=== PATIENT | male | born 1975 | race African-American/Black ===

== ENCOUNTER 2020-12-18 12:57 | Inpatient (IN) | payer OTHER ==
[~2020-12-18] VITALS: Ht 185.4 cm; Wt 144.7 kg
--- NOTE | ~2020-12-18 | O ---
[facility] [place] [address] OPERATIVE REPORT Name: JOSE CAMPBELL III Room #: 434-P ADM IN M.R.#: [id number] Admission: 12/18/20 Attend Phys: Eliud Eaton MD Discharge: Date of : 75 Report #: [id number] THIS REPORT FOR: cc: Tanner Johansen MD [facility] - Family physician unknown Elaine Baugh MD ~ DATE OF SERVICE: 12/19/2020 SURGEON: Elaine Baugh MD HOUSE FELLOW: None. PREOPERATIVE DIAGNOSIS: Large right distal ureteral stone. POSTOPERATIVE DIAGNOSIS: Large right distal ureteral stone. PROCEDURES PERFORMED: 1. Cystoscopy. 2. Right ureteroscopy with holmium laser lithotripsy and basket stone extraction. 3. Right double-J ureteral stent placement. ESTIMATED BLOOD LOSS: None. SPECIMENS: Right ureteral stone. COMPLICATIONS: None. DRAINS: A 6 x 26 double-J ureteral stent. NARRATIVE OF EVENTS: After proper patient identification and informed consent was obtained, the patient was brought to the operative suite and anesthesia was induced. He was prepped and draped in the usual sterile fashion, in dorsal lithotomy position. After surgical timeout, we began with rigid cystoscopy. The anterior urethra was unremarkable. The prostatic urethra was short and nonobstructive in appearance. Upon entering the bladder, pancystoscopy was performed. The ureteral orifices were orthotopic bilaterally. We could see a large brown calculus emanating from the right ureteral orifice. The remainder of the mucosa was unremarkable. I initially attempted to laser this with the cystoscope, but then it retropulsed into a ureteral location. I then advanced a wire followed by a semirigid ureteroscope. I then fragmented the stone into a few pieces and these were all basketed free. Once the ureter was free from stone, I used the remaining sensor wire to advance a 6 x 26 double-J ureteral stent. There was good curl of the stent in the renal pelvis as well as the bladder upon deployment. The dangle was removed. His bladder was drained. He [facility] [address] [place] [address] OPERATIVE REPORT Name: [facility] Room #: 434-P [facility] IN M.R.#: [id number] Admission: 12/18/20 Attend Phys: Eliud Eaton MD Discharge: Date of : 75 Report #: [id number] tolerated the procedure well and was transferred to the recovery area in stable condition. By: [id number] Elaine Baugh MD /nt
[2020-12-18 13:00] VITALS: BP 163/77
[2020-12-18 13:39] LABS: BASOPHILS 0.5 % (0.0-2.0); EOSINOPHILS 0.4 % (0.0-3.0); HEMATOCRIT 47.6 % (42.0-52.0); HEMOGLOBIN 16.2 gm/dL (14.0-18.0); LYMPHOCYTES 22.3 % (24.0-44.0); MCH 31.5 pg (26.0-34.0); MCV 92.6 fL (80.0-100.0); MONOCYTES 10.8 % (1.0-8.0); PLATELET COUNT 308 thou/uL (150-400); RBC 5.14 mil/uL (4.50-6.00); RDW 15.4 % (10.5-14.5); WBC 7.7 thou/uL (4.0-11.0)
[2020-12-18 13:45] LABS: URINE BILIRUBIN NEGATIVE (Negative); URINE BLOOD NEGATIVE (Negative); URINE CLARITY CLEAR; URINE COLOR YELLOW; URINE GLUCOSE-RANDOM* NEGATIVE (Negative); URINE KETONES NEGATIVE (Negative); URINE LEUKOCYTES-REFLEX NEGATIVE (Negative); URINE NITRITE-REFLEX NEGATIVE (Negative); URINE PROTEIN (DIPSTICK) NEGATIVE (Negative); URINE UROBILINOGEN 0.2 E.U./dl (0.2-1.0)
[2020-12-18 14:00] LABS: CALCIUM 9.1 mg/dL (8.5-10.1); CREATININE 1.7 mg/dL (0.7-1.3); POTASSIUM 4.2 mmol/L (3.5-5.1)
[2020-12-18 14:04] LABS: ALBUMIN 4.2 g/dL (3.4-5.0); TOTAL BILIRUBIN 0.4 mg/dL (0.2-1.0); TOTAL PROTEIN 7.8 g/dL (6.4-8.2)
[2020-12-18 17:21] VITALS: BP 146/68
[2020-12-18 17:33] VITALS: BP 143/85
--- NOTE | 2020-12-18 17:43 | NUR ---
45 year old male presents to the ED on 12-18-20 with complaints of right abdomen pain with radiation to flank area. Patient reports sudden onset of abdominal pain which started today, progressively gotten worse. Patient reports he noted darker urine color over the last couple days. Per ED Triage assessment the patient reports fully vaccinated with Moderna. At present no ID NOW seen in the ED. The patient has been admitted with Right abdominal pain - ARF - Elevated B/P and obesity. CT abdomen revealed obstructive right uropathy secondary to 11.6 mm right ureterovesical junction, and hydronephrosis. Patient per ED assessments and MD interaction via documentation presents as A&O 4. The patient lists his Mother Gaby Hoover at [phone] or [phone] and Life Partner Ginny Ramos at [phone] as next of kin and person (s) of notification. Anticipate as plan of care with medical team develops CM will follow for any identified needs at discharge.
--- NOTE | 2020-12-18 18:25 | NUR ---
Pt transferred to unit from emergency department. Pt a&ox4. Up ad janina. C/o in left lower back. IVF infusing. Admission completed. Pt instructed on urine straining. Procedure scheduled for tomorrow. Family at bedside. Call light within reach. Will give report to jazmine RN.
[2020-12-18 19:41] VITALS: BP 123/72
--- NOTE | 2020-12-19 00:24 | NUR ---
PT IS ALERT AND PLEASANT.VOIDING OK. URINE LIGHT YELLOW-STRAINING CONTINUES.AFEBRILE.MODERATE PAIN, GOT HYDROCODONE WITH RELIEF.NPO AFTER MIDNIGHT.IVF INFUSING. CALLS WITH NEEDS.
[2020-12-19 06:19] LABS: ABSOLUTE NEUTROPHILS 3.2 thou/uL (1.4-8.2); BASOPHILS 0.7 % (0.0-2.0); EOSINOPHILS 2.2 % (0.0-3.0); HEMATOCRIT 41.7 % (42.0-52.0); LYMPHOCYTES 33.2 % (24.0-44.0); MCH 31.2 pg (26.0-34.0); MCHC 33.4 g/dL (28.0-37.0); MCV 93.5 fL (80.0-100.0); MONOCYTES 12.9 % (1.0-8.0); PLATELET COUNT 240 thou/uL (150-400); RBC 4.46 mil/uL (4.50-6.00); RDW 15.3 % (10.5-14.5); WBC 6.2 thou/uL (4.0-11.0)
[2020-12-19 06:24] LABS: HEMOGLOBIN 13.9 gm/dL (14.0-18.0)
[2020-12-19 06:35] LABS: CALCIUM 7.8 mg/dL (8.5-10.1); CREATININE 1.4 mg/dL (0.7-1.3); MAGNESIUM 2.2 mg/dL (1.8-2.4); POTASSIUM 4.1 mmol/L (3.5-5.1)
[2020-12-19 07:38] VITALS: BP 101/67
--- NOTE | 2020-12-19 09:35 | NUR ---
ASSUMED PT CARE THIS AM. PT IS ALERT & ORIENTED X4. PT HAS IV SITE ON L AC. PT IS UP AD YANNA. PT IS ON ROOM AIR. PT HAS BEEN STRAINING URINE SINCE LAST NIGHT. PT IS CURRENTLY HAVING SURGERY TODAY. PT WAS AT THE BEDSIDE. WILL CONTINUE TO MONITOR PT. FOLLOW POC.
[2020-12-19 11:46] VITALS: BP 120/81
[2020-12-19 15:00] VITALS: BP 120/81
== END 2020-12-19 16:19 | disposition home or self-care (01) | DRG 660 ==
LOC: ER 12:57 → EROBS 16:50 → 4S 17:24
PROVIDERS: Emergency Medicine; Nurse Practitioner; ADMIT Internal Medicine; ATTEND Internal Medicine
DX: N13.2 Hydronephrosis with renal and ureteral calculous obstruction (principal); Z68.41 Body mass index [BMI] 40.0-44.9, adult; N17.9 Acute kidney failure, unspecified; N13.9 Obstructive and reflux uropathy, unspecified; E66.9 Obesity, unspecified
CPT/HCPCS: 10195; 50101; 50164; 51767; 56674; 56815; 57160; 58565; 58732; 62110; 62900; 70005